=== PATIENT | male | born 1995 | race Caucasian/White ===

== ENCOUNTER 2019-02-21 17:26 | Emergency (ER) | payer BC, OTHER ==
[2019-02-21] MEDS ORDERED: LIDOCAINE 1% INJ-PF (10 MG/ML) 30 ML SDV INJ ONE (19:18)
[2019-02-21] MEDS ORDERED: OXYCODONE-ACETAMINOPHEN 5-325 MG TABLET PO ONE (19:18)
--- NOTE | 2019-02-21 19:25 | ER Document Report ---
ED General - General Chief Complaint: Laceration Stated Complaint: RIGHT HAND LACERATION Time Seen by Provider: 02/21/19 19:10 Mode of Arrival: Ambulatory Information source: Patient TRAVEL OUTSIDE OF THE [place] IN LAST 30 DAYS: No - HPI Patient complains to provider of: Base of right thumb laceration Onset: Just prior to arrival Onset/Duration: Sudden Quality of pain: Sharp Severity: Severe Pain Level: 5 Associated symptoms: None Exacerbated by: Other - MOVING HIS FINGERS Relieved by: Denies Similar symptoms previously: No Recently seen / treated by doctor: No Notes: 23-year-old right-handed male coming in today with laceration the base of his right thumb from a broken wine glass. Having difficulties flexing the right thumb. - Related Data Allergies/Adverse Reactions: No Known Allergies Allergy (Unverified 02/21/19 20:41) Past Medical History - General Information source: Patient - Social History Smoking Status: Smoker,Current Status Unk Family History: Reviewed & Not Pertinent - Immunizations Hx Diphtheria, Pertussis, Tetanus Vaccination: Yes Review of Systems - Review of Systems Notes: Constitutional: No fevers. No chills. EENT: No eye redness. No eye pain. No ear pain. No sore throat. Cardiovascular: No chest pain. No palpitations. Respiratory: No cough. No shortness of breath. No respiratory distress. Gastrointestinal: No abdominal pain. No nausea, vomiting, or diarrhea. Genitourinary: Atraumatic. No lesions. No pain. No discharge. Musculoskeletal: No swelling. No deformities. Positive for right thumb laceration Skin: No rash or lesions. Lymphatic: No swollen lymph nodes. Neurologic: No headache. No syncope. Psychiatric: No suicidal or homicidal ideation. Physical Exam - Vital signs Vitals: Temp Pulse Resp BP Pulse Ox 98.6 F 92 16 138/84 H 97 02/21/19 18:43 02/21/19 18:43 02/21/19 18:43 02/21/19 18:43 02/21/19 18:43 - Notes Notes: General: Well-developed, well-nourished. In no acute distress. Non-toxic appearing. Cardiac: Well-perfused. Regular rate and rhythm. No murmurs, rubs, or gallops. Pulmonary: No respiratory distress. No cyanosis. Bilateral lung fiels are clear to auscultation. Abdominal: Non-distended. Non-rigid. Bowels sounds are present in all four quadrants. No guarding or rebound. HEENT: Head is atraumatic. Conjunctivae not reddened. No tearing. PERRL. EOMI. Orbits atraumatic. No periorbital swelling or erythema. Oropharynx is without erythema, swelling, or exudates. Neck: Supple. No adenopathy. No meningismus. Dermatologic: Warm with good turgor. No rash. Atraumatic. Chest: Atraumatic. No chest wall tenderness to palpation. Musculoskeletal: Moves all extremities well. No range of motion deficits. no muscular or joint tenderness. No paraspinal muscle tenderness. no midline spinal tenderness or step-off. 4 cm laceration across the base of the right thumb. INABILITY flexing the right thumb. No active bleeding distal neurovascular exam is intact Genitourinary: Examination deferred Neurologic: No gross neurologic deficits. Psychiatric: Normal mood. Course - Re-evaluation Re-evalutation: 02/21/19 19:25 Check an x-ray to make sure there is no radiopaque foreign bodies in the wound then numbed up with lidocaine and examined for foreign body and for tendon damage. Consult with Orth O as needed 02/21/19 21:01 After the patient was numbed up, it was apparent that the flexor tendon was completely lacerated. I contacted Dr. Bronson leak detection engineer for orthopedics today. He asked me to clean it out and loosely stitched together and put a bulky dressing on it. He wants the patient to call his office in the morning and he will fix the tendon tomorrow afternoon. This information was passed on to the patient and he acknowledges full understanding of the need for following up with Dr. Zhao verde tomorrow. - Vital Signs Vital signs: Temp Pulse Resp BP Pulse Ox 98.6 F 92 16 138/84 H 97 02/21/19 18:43 02/21/19 18:43 02/21/19 18:43 02/21/19 18:43 02/21/19 18:43 Procedures - Laceration/Wound Repair Right thumb Time completed: 21:02 Wound length (cm): 4 Wound's Depth, Shape: Linear Laceration pre-procedure: Sterile PPE donned, Sterile drapes applied, Shur-Clens applied Anesthetic type: 1% Lidocaine Volume Anesthetic (mLs): 10 Wound explored: Clean - There was a small radiopaque foreign body on x-ray but I was unable to find it during my exploration Wound Debrided: Minimal Wound Repaired With: Sutures Suture Size/Type: 4:0, Ethilon Number of Sutures: 5 Layer Closure?: No Post-procedure wound care: Sterile dressing applied Post-procedure NV exam normal: Yes Complications: No Notes: 02/21/19 21:03 Patient tolerated the procedure well Discharge - Discharge Clinical Impression: Thumb laceration Qualifiers: Encounter type: initial encounter Damage to nail status: without damage Foreign body presence: with foreign body Laterality: right Qualified Code(s): S61.021A - Laceration with foreign body of right thumb without damage to nail, initial encounter Flexor tendon laceration of hand with open wound Qualifiers: Encounter type: initial encounter Laterality: right Qualified Code(s): S66.821A - Laceration of other specified muscles, fascia and tendons at wrist and hand level, right hand, initial encounter; S61.401A - Unspecified open wound of right hand, initial encounter Condition: Good Disposition: HOME, SELF-CARE Instructions: Laceration Care ([facility]), Oral Narcotic Medication ([facility]), Soap Cleansing ([facility]), Tetanus Immunization Given ([facility]) Additional Instructions: Call Dr. Bronson's office first thing in the morning. Notify them that you were in the emergency department and that Dr. Bronson is aware of your case. Make sure that they understand that Dr. Bronson wants to see you tomorrow in the office to do a repair on the tendon of your right thumb. Take the pain medication only as needed for moderate to severe pain. Try to get by with Tylenol and Motrin if this is sufficient. Antibiotics are to prevent infection. Prescriptions: Cephalexin Monohydrate [Keflex 500 mg Capsule] 500 mg PO TID 5 Days #15 capsule Referrals: DARRIAN HOLDEN MD [Primary Care Provider] - Follow up as needed SANDI BRONSON MD [ACTIVE STAFF] - Follow up tomorrow
--- NOTE | 2019-02-21 20:15 | RADIOLOGY REPORT (SQ) ---
EXAM DESCRIPTION: XR HAND 3 OR MORE VIEWS COMPLETED DATE/TME: 02/21/2019 19:18 CLINICAL HISTORY: 23 years, Male, LAC BASE OF THUMB R/O FB EXAM DESCRIPTION: CLINICAL HISTORY: LAC BASE OF THUMB R/O FB COMPARISON: None FINDINGS: 3 view(s) submitted . In the base of the first digit soft tissues there is a 1 x 4 mm radiopaque foreign density adjacent to the first proximal phalanx and near the skin surface. No fracture or dislocation is identified. Bone marrow attenuation is unremarkable. No other radiopaque foreign body is identified. IMPRESSION: Retained radiopaque foreign body. No acute fracture or dislocation.
[2019-02-21] MEDS ORDERED: ONDANSETRON 4 MG TAB.RAPDIS PO ONE (20:24)
[2019-02-21] MEDS ORDERED: CEPHALEXIN 500 MG CAPSULE PO ONE (21:05)
[2019-02-21] MEDS ORDERED: HYDROCODONE/ACETAMINOPHEN 5-325 MG (6 TAB/ER DISP) PO PRN (21:08)
[2019-02-21 21:25] VITALS: BP 130/76
== END 2019-02-21 21:25 | disposition home or self-care (01) ==
LOC: ER 17:26
DX: S66.021A Laceration of long flexor muscle, fascia and tendon of right thumb at wrist and hand level, initial encounter (principal); S61.021A Laceration with foreign body of right thumb without damage to nail, initial encounter; W25.XXXA Contact with sharp glass, initial encounter
CPT/HCPCS: 99283; 73130; 12002; S0119; J3490

== ENCOUNTER 2019-02-23 14:32 | Day surgery (SDC) | payer OTHER ==
[~2019-02-23 14:32] MED LIST: CEFAZOLIN 2 GM/D5W RTU 2 GM/50 ML RTUPB IV PRN; DEXAMETHASONE SOD PHOSPHATE INJ 4 MG/1 ML VIAL ONE; KETOROLAC TROMETHAMINE 60 MG/2 ML SDV ONE; ONDANSETRON HCL INJ/PF 4 MG/2 ML SDV ONE; SUCCINYLCHOLINE CHLORIDE INJ 200 MG/10 ML VIAL ONE
[2019-02-23] MEDS ORDERED: CEFAZOLIN 2 GM/D5W RTU 2 GM/50 ML RTUPB IV ONE (14:39)
[2019-02-23 15:21] LABS: HEMATOCRIT 44.6 % (37.9-51.0); HEMOGLOBIN 15.3 g/dL (13.5-17.0); MEAN CORPUSCULAR HEMOGLOBIN 30.1 pg (27.0-33.4); MEAN CORPUSCULAR HGB CONC 34.3 g/dL (32.0-36.0); MEAN CORPUSCULAR VOLUME 88 fl (80-97); PLATELET COUNT 243 10^3/uL (150-450); RED BLOOD COUNT 5.08 10^6/uL (4.35-5.55); RED CELL DISTRIBUTION WIDTH 12.8 % (11.5-14.0); WHITE BLOOD COUNT 7.9 10^3/uL (4.0-10.5)
[2019-02-23 15:39] LABS: ANION GAP 7 (5-19); BLOOD UREA NITROGEN 12 mg/dL (7-20); CALCIUM 9.4 mg/dL (8.4-10.2); CARBON DIOXIDE 29 mmol/L (22-30); CHLORIDE 105 mmol/L (98-107); GLUCOSE 84 mg/dL (75-110); SODIUM 141.4 mmol/L (137-145)
[2019-02-23] MEDS ORDERED: HYDROMORPHONE HCL INJ/PF 2 MG/ML AMPULE ONE (16:54)
[2019-02-23] MEDS ORDERED: MIDAZOLAM 2 MG/2 ML INJ ONE ×2 (16:54→17:33)
[2019-02-23] MEDS ORDERED: FENTANYL CITRATE INJ/PF 100 MCG/2 ML AMPUL ONE (16:54)
[2019-02-23] MEDS ORDERED: ACETAMINOPHEN 1,000 MG/100 ML RTUPB IV ONE (16:55)
[2019-02-23] MEDS ORDERED: PROPOFOL INJ 200 MG/20 ML VIAL IV ONE (16:55)
[2019-02-23] MEDS ORDERED: MEPERIDINE HCL/PF INJ 25 MG/1 ML DISP.SYRIN IV PRN (17:28)
[2019-02-23] MEDS ORDERED: PROMETHAZINE HCL INJ 25 MG/1 ML VIAL IV PRN (17:28)
[2019-02-23] MEDS ORDERED: DIPHENHYDRAMINE HCL 50 MG/ML VIAL IV PRN (17:28)
[2019-02-23] MEDS ORDERED: FENTANYL CITRATE INJ/PF 100 MCG/2 ML AMPUL IV PRN ×3 (17:28)
[2019-02-23] MEDS ORDERED: ONDANSETRON HCL INJ/PF 4 MG/2 ML SDV IV PRN ×2 (17:28→19:30)
[2019-02-23] MEDS ORDERED: MORPHINE SULFATE 10 MG/ML INJ IV PRN ×2 (17:28→19:30)
[2019-02-23] MEDS ORDERED: BUPIVACAINE HCL 0.5 % INJ/PF 30 ML SDV ONE (17:32)
[2019-02-23] MEDS ORDERED: OXYCODONE-ACETAMINOPHEN 5-325 MG TABLET PO PRN (19:30)
--- NOTE | 2019-02-23 19:39 | Discharge Summary ---
Discharge Summary (SDC) - Discharge Final Diagnosis: Right thumb laceration Date of Surgery: 02/23/19 Condition: Good Treatment or Instructions: Schedule Follow Up w/ Dr. Christian Duong @ [facility] to be seen in 10-14 days or as scheduled [place]: [place]: [place]: Ice and elevate Keep splint clean/dry/intact, do not remove. If your fingers become numb please unwrap the Joshua wrap but leave the splint in place, if the sensation does not return within 30 minutes please return to the emergency department. May begin finger range of motion attempting to make full fist. Please use ibuprofen (Motrin or Advil) 600-800 mg every 8 hours as needed for pain or fever DO NOT TAKE w/ TORADOL may use once TORADOL complete. You may also use acetaminophen (Tylenol) 1000 mg every 4-6 hours as needed for pain or fever. Please be aware that many medications contain acetaminophen, do not exceed a total of 1000 mg of acetaminophen every 6 hours. If ibuprofen and acetaminophen are not sufficient for your pain you may take the Percocet/[place]jai. Please be aware that the Percocet/Ojai does contain Tylenol. Stool softener of choice when on pain medication. USE OF [id number] IBUPROFEN: Ibuprofen (Advil, Nuprin, Medipren, Motrin IB) is a medication for fever and pain control. In addition, it has anti- inflammatory effects which may be beneficial, especially in the treatment of injuries. It's best to take ibuprofen with food. Persons with ulcer disease or allergy to aspirin should notify their physician of this before taking ibuprofen. Ibuprofen can be given every four to six hours, for a total of four doses daily. Age Pain or fever dose Antiinflammatory dose 6-8 yr 200 mg (1 tab) 200 mg (1 tab) 9-11 yr 200 mg (1 tab) 200-400 mg (1-2 tab) 11-14 yr 200-400 mg (1-2 tab) 400 mg (2 tab) 15-adult 400 mg (2 tab) 600 mg (3 tab) ORAL NARCOTIC MEDICATION: You have been given a prescription for pain control. This medication is a narcotic. It's best taken with food, as nausea can result if taken on an empty stomach. Don't operate machinery or drive within six hours of taking this medication. Do not combine this medicine with alcohol, or with any medication which can cause sedation (such as cold tablets or sleeping pills) unless you get permission from the physician. Narcotics tend to cause constipation. If possible, drink plenty of fluids and eat a diet high in fiber and fruits. Please be aware that prescription narcotics also have the potential for abuse. People become addicted to these medications because of the general sense of wellbeing that they induce. This feeling along with a significant reduction in tension, anxiety, and aggression provides a stimulating seductive quality to these drugs. Once your pain is under control, we encourage you to discard your unused narcotics. Prescriptions: Ketorolac Tromethamine [Toradol 10 mg Tablet] 10 mg PO Q8HP PRN #12 tablet PRN Reason: Oxycodone HCl/Acetaminophen [Percocet 5-325 mg Tablet] 1 tab PO Q6 #25 tab Referrals: NEIL MUKHERJEE MD [Primary Care Provider] - Respiratory Treatments at Home: Deep Breathing/Coughing Discharge Activity: No Lifting Over 10 Pounds, No Lifting/Push/Pulling Report the Following to Your Physician Immediately: Fever over 101 Degrees, Unusual Bleeding, Redness, Swelling, Warmth, Increased Soreness
--- NOTE | 2019-02-23 19:39 | Operative Report ---
Operative Report DATE OF SURGERY: 02/23/19 PREOPERATIVE DIAGNOSIS: Right thumb laceration POSTOPERATIVE DIAGNOSIS: Right thumb FPL tendon laceration, ulnar and radial digital nerve laceration OPERATION: Right thumb FPL repair zone II. Right ulnar and radial digital nerve repair SURGEON: AT [facility] ANESTHESIA: GA COMPLICATIONS: None ESTIMATED BLOOD LOSS: Minimal PROCEDURE: Indication for above procedure: 23-year-old male who sustained a laceration to his hand from a wine bottle and overtly on 02/21/2019. Patient was seen at the emergency room and the area was irrigated and loosely closed. He was subsequently followed up with my partner in the office where findings of possible flexor tendon laceration were documented. At that point patient was set up for operative intervention. The preoperative area we discussed possible intraoperative findings including flexor tendon laceration with possible digital nerve involvement. Postoperative prognosis, outcomes and residual neurologic deficits and cold insensitivity were discussed in the preoperative holding area. After discussing risks and benefits patient verbalized understanding and consented for surgical procedure. Procedure In Detail: Patient was seen and evaluated in the preoperative holding area. The RIGHT upper extremity was initialized and marked. Patient received 2g of Ancef IV for bacterial prophylaxis. Patient was taken back to the operative room where transferred to the operative table and placed under general anesthesia. Once they were adequately anesthetized a nonsterile tourniquet was placed on the upper extremity. A surgical team debriefing was performed ensuring all instrumentation was available, the surgical procedure was discussed with pos sible concerns reviewed. The upper extremity was prepped with chlorhexidine and alcohol and draped in a sterile fashion. A timeout was done identifying correct patient, procedure and extremity everyone in attendance agree with this and verbalized no concerns. The extremity was exsanguinated the tourniquet was inflated to 250 mmHg. Patient's laceration was extended proximally distally with Annette extensions. Blunt dissection was performed identifying the radial and ulnar neurovascular bundle there was laceration of the radial and ulnar digital nerves with intact radial and ulnar digital artery. Laceration of the FPL at zone II with significant fraying along the distal portion. A portion of the oblique sheldon was released the distal annular sheldon and A1 sheldon remained intact. Tendon was not identified and likely retracted. Longitudinal skin incision was made along the radial border of the ring finger proximal to Deshpande's cardinal line. Blunt dissection was performed. Palmar fascia was incised along with the transverse carpal ligament to identify the FPL tendon was retracted to the carpal tunnel. Carpal tunnel release was complete with releasing the volar antebrachial fascia. A suture was placed within the FPL tendon and shuttled to the distal wound and held with a 22-gauge needle. A II flexor tendon repair was then performed with a-0 fiber loop suture utilizing a 8 strand cruciate repair. 1 cm bites were obtained proximally and distally. With flexion extension of the digit passively there is no evidence of gapping at the flexor tendon site. This was then reinforced with a running epitendinous suture utilizing 6-0 Prolene suture. There is no evidence of bowstringing with passive range of motion and motion utilizing the FPL at the transverse carpal ligament. Wound was then copiously irrigated with normal saline. The proximal and distal aspect of the ulnar digital nerve was neurolysed distal edges were then debrided until normal-appearing fascicles were identified. The digital nerve was then reapproximated with 3 x simple 8-0 nylon suture with a epineural repair. Attention was prepared was performed. With full passive extension of the digit there is no evidence of gapping or widening. The radial digital nerve was then identified proximally and distally. Once again the proximal distal aspect was debrided until normal-appearing fascicles. Epineural repair with 8-0 nylon suture x2 was performed. Wound was copiously irrigated with normal saline. The repair site was then reinforced with Tisseel fibrin glue. There is no evidence of gapping with full extension and flexion of the digit. Any peripheral veins were coagulated with bipolar cautery. Carpal tunnel incision was closed with running 3-0 horizontal mattress suture. Skin incision was closed with interrupted 4-0 nylon suture. Tourniquet was deflated. Patient had good peripheral effusion with normal skin turgor. 30 cc of 0.5% bupivacaine without epinephrine was injected for postoperative pain control. Patient was placed in a thumb spica splint with the wrist at neutral position MP joint flexed at 35 degrees IP joint flexed at 25 degrees. Sponge counts, instrument counts, needle counts were correct. Patient was then awoken from anesthesia. Transferred from the operating room table to the operating room stretcher. There was no intraoperative complications patient tolerated procedure well stable to PACU. Postoperative plan: Patient thought in the office in 2 weeks for wound check and suture removal. We will set the patient up for occupational therapy as per zone 2 flexor tendon repair [place] protocol.
[2019-02-23] MEDS ORDERED: LORAZEPAM INJ 2 MG/1 ML VIAL ONE (20:18)
[2019-02-23] MEDS ORDERED: PROMETHAZINE HCL INJ 25 MG/1 ML VIAL ONE (21:04)
[2019-02-23 21:40] VITALS: BP 137/88
== END 2019-02-23 21:40 | disposition home or self-care (01) ==
LOC: OROUT 14:32
PROVIDERS: ATTEND Orthopaedic Surgery
PROC: 0LQ70ZZ Repair Right Hand Tendon, Open Approach (ICD-10-PCS; 2019-02-23)
PROC: 01Q60ZZ Repair Radial Nerve, Open Approach (ICD-10-PCS; 2019-02-23)
PROC: 01Q40ZZ Repair Ulnar Nerve, Open Approach (ICD-10-PCS; 2019-02-23)
PROC: 01N50ZZ Release Median Nerve, Open Approach (ICD-10-PCS; principal; 2019-02-23 16:30)
DX: S66.021A Laceration of long flexor muscle, fascia and tendon of right thumb at wrist and hand level, initial encounter (principal); S64.01XA Injury of ulnar nerve at wrist and hand level of right arm, initial encounter; S64.21XA Injury of radial nerve at wrist and hand level of right arm, initial encounter
CPT/HCPCS: 1810; 36415; 80048; 85027; C9250; J0131; J0330; J0690; J1100; J1170; J1885; J2060; J2250; J2405; J2550; J2704; J3010; J3490